=== PATIENT | female | born 1940 | race Caucasian/White ===

== ENCOUNTER 2022-03-26 13:39 | Outpatient (CLI) | payer MEDICARE, OTHER | END 2022-03-26 13:40 | disposition home or self-care (01) | LOC: CSHLAB 13:39 | PROVIDERS: ATTEND Orthopaedic Surgery | DX: M54.50 Low back pain, unspecified (principal); M54.16 Radiculopathy, lumbar region | CPT/HCPCS: 93005; 93010 ==

== ENCOUNTER 2022-03-26 14:27 | Emergency (ER) | payer MEDICARE, OTHER ==
[2022-03-26 15:29] LABS: ALT (SGPT) 16 U/L (8-55); AST (SGOT) 31 U/L (5-34); Albumin 4.4 g/dL (3.4-4.8); Alkaline Phosphatase 97 U/L (40-110); Anion Gap 15 mmol/L (10-20); BUN (Urea Nitrogen) 14 mg/dL (9.8-20.1); Bilirubin, Total 0.8 mg/dL (0.2-1.2); Calc. Creatinine Clearance 0 mL/min (70-130); Calcium 9.9 mg/dL (7.8-10.44); Carbon Dioxide 26 mmol/L (23-31); Chloride 105 mmol/L (98-107); Globulin 3.3 g/dL (2.4-3.5); Glucose 114 mg/dL (83-110); Magnesium 2.5 mg/dL (1.6-2.6); Potassium 3.9 mmol/L (3.5-5.1); Protein, Total 7.7 g/dL (5.8-8.1); Sodium 142 mmol/L (136-145)
[2022-03-26 15:37] LABS: #Basophils 0.1 10x3/uL (0.0-0.2); #Eosinphils 0.1 10x3/uL (0.0-0.5); #Monocytes 0.6 10x3/uL (0.0-1.1); #Neutrophils 6.3 10x3/uL (1.5-8.4); %Basophils 0.6 % (0.0-2.0); %Eosinophils 0.8 % (0.0-6.0); %Lymphocytes 26.4 % (18.0-47.0); %Monocytes 6.2 % (0.0-10.0); %Neutrophils 65.8 % (40.0-75.0); Hemoglobin 12.9 g/dL (12.0-15.5); Mean Corpuscular HGB CONC 33.2 g/dL (32.0-36.0); Mean Corpuscular Hemoglobin 31.5 pg (27.0-33.0); Mean Corpuscular Volume 94.6 fl (81.6-98.3); Mean Platelet Volume 10.4 fl (7.4-10.4); Platelet Count 226 10x3/uL (150-450); RBC Distribution Width 12.5 % (11.5-14.5); White Blood Cell (WBC) Count 9.6 10x3/uL (3.5-10.5)
== END 2022-03-26 16:57 | disposition home or self-care (01) ==
LOC: CSHERS 14:27
DX: R55 Syncope and collapse (principal); R94.6 Abnormal results of thyroid function studies; I10 Essential (primary) hypertension
CPT/HCPCS: 36415; 71045; 83735; 84439; 84443; 84484; 93005; 94760

== ENCOUNTER 2022-03-31 05:48 | Inpatient (IN) | payer MEDICARE, OTHER ==
[2022-03-29 10:09] VITALS: BMI 28.3
[2022-03-30 13:56] LABS: PTT 23.9 sec (22.0-33.0); Prothrombin Time 10.9 sec (9.5-12.1)
[2022-03-30 23:01] LABS: SARS-CoV-2 PCR by NAA Not Detected (NotDetected)
[2022-03-31] MEDS ORDERED: Famotidine/PF 20 mg/2ml Vial ONE (06:10)
[2022-03-31] MEDS ORDERED: Lidocaine 1% MPF 2 ML VIAL ONE (06:10)
[2022-03-31] MEDS ORDERED: EPINEPHrine 1 MG/ML AMP ONE (06:23)
[2022-03-31] MEDS ORDERED: Bupivacaine 0.25% HCL 30 ML VIAL ONE (06:23)
[2022-03-31] MEDS ORDERED: Thrombin 5000 UNITS/5 ML VIAL ONE (06:24)
[2022-03-31] MEDS ORDERED: Ketamine 50 MG/ML (10ML VIAL) ONE (06:38)
[2022-03-31] MEDS ORDERED: Phenylephrine 40 MG/NS 250 ML 250 ML ONE (06:39)
[2022-03-31] MEDS ORDERED: Propofol 1,000 MG/100 ML VIAL IV ONE (06:40)
[2022-03-31] MEDS ORDERED: PROPOFOL 20 ML ONE (07:01)
[2022-03-31] MEDS ORDERED: Fentanyl 250 MCG/5 ML VIAL ONE (07:01)
[2022-03-31] MEDS ORDERED: PHENYLEPHRINE-NS 100 MCG/ML 10 ML SYRINGE ONE (07:02)
[2022-03-31] MEDS ORDERED: Ondansetron PF 4 MG/2 ML Vial ONE (07:02)
[2022-03-31] MEDS ORDERED: Succinylcholine 200 MG/10 ml SYRINGE FS ONE (07:02)
[2022-03-31] MEDS ORDERED: Dexamethasone 20 MG/5 ML VIAL ONE (07:03)
[2022-03-31] MEDS ORDERED: Lidocaine 1% PF 5 ML VIAL ONE (07:03)
[2022-03-31] MEDS ORDERED: Glycopyrrolate 0.2 MG/ML 5 ML SYRINGE ONE (07:03)
[2022-03-31] MEDS ORDERED: ceFAZolin 2 GM/Dextrose 50 ML IVPB ONE (07:05)
[2022-03-31] MEDS ORDERED: Fentanyl 100 MCG/2 ML VIAL ONE ×2 (08:31→11:50)
[2022-03-31] MEDS ORDERED: Naloxone HCl 0.4 mg/ml Vial ONE (11:07)
[2022-03-31] MEDS ORDERED: ePHEDrine Sulfate 50 MG/10 ML VIAL ONE (11:18)
[2022-03-31] MEDS ORDERED: traMADol HCl 50 MG TAB PO PRN (11:42)
[2022-03-31] MEDS ORDERED: Milk Of Magnesia 30 ML UDCUP PO PRN (11:42)
[2022-03-31] MEDS ORDERED: Ondansetron PF 4 MG/2 ML Vial IVP PRN (11:42)
[2022-03-31] MEDS ORDERED: Acetaminophen 325 MG TAB PO PRN (11:42)
[2022-03-31] MEDS ORDERED: Morphine 2 MG/ML VIAL SLOW IVP PRN (11:42)
[2022-03-31] MEDS ORDERED: Mag-Al 1200 mg/1200 mg/30 ML UDCUP PO PRN (11:42)
[2022-03-31] MEDS ORDERED: Bisacodyl 10 MG SUPP PR PRN (11:42)
[2022-03-31] MEDS ORDERED: Acetaminophen 500 MG TAB PO PRN (11:46)
[2022-03-31] MEDS: HYDROcodone/Acetaminophen 10/325 mg Tablet PO PRN ×2 (14:23→18:46)
[2022-03-31] MEDS: ceFAZolin 2 GM/Dextrose 50 ML 2 GM in Premix Bag 1 BAG IVPB SCH ×2 (15:00→23:23)
[2022-03-31] MEDS ORDERED: Rosuvastatin 20 MG TAB PO SCH (21:00)
[2022-04-01] MEDS ORDERED: CALCIUM PO SCH (09:00)
[2022-04-01] MEDS ORDERED: [UNRECOGNIZED DRUG - OTHER] PO SCH (09:00)
[2022-04-01] MEDS ORDERED: VIT K1 PO SCH (09:00)
[2022-04-01] MEDS ORDERED: FOLIC AC PO SCH (09:00)
[2022-04-01] MEDS ORDERED: Gabapentin 100 MG CAP PO SCH (09:00)
[2022-04-01] MEDS ORDERED: MV MN PO SCH (09:00)
[2022-04-01] MEDS ORDERED: Lisinopril 20 MG TAB PO SCH (09:00)
[2022-04-01] MEDS ORDERED: Aspirin 81 mg Enteric Coated Tablet PO SCH (09:00)
[2022-04-01 16:03] VITALS: BP 126/62; TEMP 98.1
[2022-04-01] MEDS: HYDROcodone/Acetaminophen 10/325 mg Tablet PO PRN (18:55)
== END 2022-04-01 19:34 | DRG 455 ==
LOC: CSHSDC 05:48 → CSHTELE 13:11
PROVIDERS: ADMIT Orthopaedic Surgery; ATTEND Emergency Medicine
PROC: 0SG10AJ Fusion of 2 or more Lumbar Vertebral Joints with Interbody Fusion Device, Posterior Approach, Anterior Column, Open Approach (ICD-10-PCS; principal; 2022-03-31)
PROC: 0SG1071 Fusion of 2 or more Lumbar Vertebral Joints with Autologous Tissue Substitute, Posterior Approach, Posterior Column, Open Approach (ICD-10-PCS; 2022-03-31)
PROC: 01NB0ZZ Release Lumbar Nerve, Open Approach (ICD-10-PCS; 2022-03-31)
PROC: 4A11X4G Monitoring of Peripheral Nervous Electrical Activity, Intraoperative, External Approach (ICD-10-PCS; 2022-03-31)
DX: M48.061 Spinal stenosis, lumbar region without neurogenic claudication (principal); M54.16 Radiculopathy, lumbar region; I10 Essential (primary) hypertension; Z20.822 Contact with and (suspected) exposure to COVID-19; M43.16 Spondylolisthesis, lumbar region; M41.86 Other forms of scoliosis, lumbar region; E78.5 Hyperlipidemia, unspecified; Z79.899 Other long term (current) drug therapy; Z79.82 Long term (current) use of aspirin
CPT/HCPCS: 36416; 72110; 85610; 85730; 86850; 86900; 86901; C1713; C1889; J0171; J0690; J1100; J2310; J2405; J2704; J3010; S0020; S0028; U0003; U0005

== ENCOUNTER 2022-05-13 12:23 | Outpatient (CLI) | payer MEDICARE, OTHER | END 2022-05-13 12:24 | disposition home or self-care (01) | LOC: CSHRAD 12:23 | PROVIDERS: ATTEND Orthopaedic Surgery | DX: M54.50 Low back pain, unspecified (principal); Z98.890 Other specified postprocedural states; M47.816 Spondylosis without myelopathy or radiculopathy, lumbar region | CPT/HCPCS: 72100 ==

== ENCOUNTER 2022-08-12 11:51 | Outpatient (CLI) | payer MEDICARE, OTHER | END 2022-08-12 11:52 | disposition home or self-care (01) | LOC: CSHLAB 11:51 | PROVIDERS: ATTEND Obstetrics & Gynecology | DX: Z20.822 Contact with and (suspected) exposure to COVID-19 (principal) | CPT/HCPCS: 87811 ==